=== PATIENT | male | born 1970 | race Caucasian/White ===

== ENCOUNTER 2020-09-08 13:20 | Emergency (ER) | payer OTHER, SELFPAY ==
--- NOTE | ~2020-09-08 | US_ITS ---
EXAMINATION: US ABDOMEN LIMITED CLINICAL INFORMATION: Elevated LFTs with fever.. COMPARISON: CT 11/26/2016. MRI 12/09/2016. Ultrasound from 11/12/2016. TECHNIQUE: Real-time imaging of the right upper quadrant abdominal viscera. FINDINGS: Evaluation is limited due to patient condition. PANCREAS: The pancreatic head and body are unremarkable. Limited visualization of the tail. LIVER: The liver is normal in size. The liver contour is normal. There is diffuse increased liver parenchymal echogenicity, consistent with hepatic steatosis. No hepatic lesion is seen on this study. Previously seen lesion in the right lobe of the liver is not visualized. There is no intrahepatic biliary duct dilatation seen. GALLBLADDER: The gallbladder is somewhat distended without evidence of stones, sludge, polyps, wall thickening or pericholecystic fluid. COMMON BILE DUCT: Normal in caliber measuring 0.3 cm in diameter. RIGHT KIDNEY: Normal. No hydronephrosis. No renal calculi or focal parenchymal lesions. The kidney measures 11.4 cm in maximum dimension. FREE FLUID: None. US/US abdomen limited IMPRESSION: Limited study due to patient condition. Somewhat distended gallbladder which appears otherwise unremarkable. No inflammation. Hepatic steatosis. The previously visualized lesion in the right lobe of the liver is not clearly defined on the current examination.
--- NOTE | ~2020-09-08 | XR_ITS ---
EXAMINATION: XR CHEST CLINICAL INFORMATION: Mental status change COMPARISON: 07/27/2019 TECHNIQUE: Frontal view of the chest was obtained. FINDINGS: Cardiac leads overlie the chest. The lungs are well expanded. Subcutaneous emphysema is seen overlying the left chest wall. No dense consolidation. No pleural effusion or edema. There is likely a small left apical pneumothorax. The cardiomediastinal silhouette is unremarkable. Left lateral ninth and 10th rib fractures are likely present. XR/XR chest 1V IMPRESSION: Left lateral rib fractures, likely the ninth and 10th ribs. Small left-sided pneumothorax. Subcutaneous emphysema of the left chest wall. This critical result was discussed with Óscar Gilliland MD by telephone at 09/08/2020 3:39 PM and it was ascertained that the content and urgency of the report was understood at the time of direct communication.
--- NOTE | ~2020-09-08 | CT_ITS ---
EXAMINATION: NONCONTRAST HEAD CT NONCONTRAST CERVICAL SPINE CT INDICATION INFORMATION: Mental status change. Fall. Neck pain. COMPARISON: 07/27/2019 TECHNIQUE: Separate noncontrast CT examinations of the head and cervical spine were performed. Coronal and sagittal images were created for each examination at the technologist workstation. This CT examination was performed using dose optimization techniques as appropriate, variously including the following: *Automated exposure control *Adjustment of mA and/or kV according to patient size (this includes techniques or standardized protocols for targeted exams where dose is matched to indication/reason for exam; i.e. extremities or head) *Use of iterative reconstruction technique DLP: 1461 mGy-cm FINDINGS: Head: There is no evidence of acute intracranial hemorrhage or territorial infarction. No abnormal mass effect or midline shift is seen. Duncan to white matter differentiation is well preserved. No extra-axial fluid collections are identified. No hydrocephalus. Proportional prominence of the ventricles and sulcal spaces is consistent with mild volume loss. Patchy periventricular and deep white matter hypoattenuation is consistent with mild small vessel ischemic changes. Bilateral chaparro radiata chronic lacunar infarcts. Chronic left pontine infarct. No acute osseous or soft tissue abnormality. Partial left mastoid air cell effusion. Near-complete opacification of the visualized portion of the left maxillary sinus. Cervical spine: Motion limits the evaluation. Reversal of the normal cervical lordosis. There is otherwise anatomic alignment of the vertebral bodies and posterior elements. The atlantoaxial and atlantooccipital articulations are intact. Vertebral body heights and intervertebral disc spaces are grossly maintained. No evidence of acute fracture. No prevertebral soft tissue swelling. Mild centrilobular emphysema at the lung apices. The thyroid gland is unremarkable. CT/CT cervical spine wo con IMPRESSION: 1. No acute intracranial findings. 2. No acute fracture or malalignment of the cervical spine. Motion limited evaluation.
[2020-09-08] MEDS: LORazepam 2 MG/ML VIAL IM (13:30)
--- NOTE | 2020-09-08 13:36 | ECG_ITS ---
Test Reason : SOB Blood Pressure : / mmHG Vent. Rate : 128 BPM Atrial Rate : 153 BPM P-R Int : 000 ms QRS Dur : 104 ms QT Int : 408 ms P-R-T Axes : 000 051 054 degrees QTc Int : [address] & T wave abnormality, consider anterolateral ischemia Abnormal ECG When compared with ECG of 27-JUL-2019 04:08, Supraventricular tachycardia Present Referred By: Óscar Gilliland Electronically Signed By:Jagdeep Godfrey
[2020-09-08 13:39] VITALS: BP 140/100; BP 79/29; PULSE 126; RESP 29; TEMP 38.8; O2SAT 80; O2SAT 97; BMI 32.1
[2020-09-08 13:46] LABS: Glucose, Whole Blood 112 mg/dL (60-115)
[2020-09-08 14:08] LABS: Basophils Percent Auto 0.1 % (0-2); Imm Gran Abs Auto 0.09 X10*3/uL (0.00-0.03); Imm Gran Pct Auto 0.8 % (0.0-0.4); MANUAL DIFF FLAG SCAN; Neutrophils Percent Auto 87.1 % (45-73); PLT CLUMP 1; SCAN SMEAR FLAG 1
[2020-09-08 14:10] LABS: Eosinophils Percent Auto 0.1 % (0-4); Hematocrit 38.5 % (42-52); Hemoglobin 12.8 g/dl (14.0-18.0); Lymphocytes Absolute Auto 0.6 X10*3/uL (1.2-4.9); Lymphocytes Percent Auto 5.5 % (20-40); Mean Corpuscular HGB Conc 33.2 g/dl (31.0-36.0); Mean Corpuscular Hemoglobin 34.9 pg (27.0-33.0); Mean Corpuscular Volume 104.9 fL (80-98); Mean Platelet Volume 11.3 fL (9.4-12.4); Monocytes Absolute Auto 0.7 X10*3/uL (0.1-1.2); Monocytes Percent Auto 6.4 % (2-11); Neutrophils Absolute Auto 10.1 X10*3/uL (2.0-8.3); Red Blood Count 3.67 X10*6/uL (4.60-5.80); Red Cell Distribution Width 15.7 % (11.0-16.0); White Blood Count 11.5 X10*3/uL (4.8-10.8)
[2020-09-08 14:11] LABS: Platelet Count 140 X10*3/uL (160-400)
[2020-09-08 14:31] VITALS: BP 119/74; PULSE 100; RESP 23; TEMP 37.7; O2SAT 96
[2020-09-08 14:36] LABS: Ethanol < 10 mg/dL
[2020-09-08 14:38] LABS: Alanine Aminotransferase 81 U/L (0-40); Albumin Level 3.8 g/dL (3.5-5.0); Alkaline Phosphatase 90 U/L (39-117); Anion Gap 30 (12-20); Aspartate Amino Transferase 121 U/L (5-37); B Type Natriuretic Peptide 124 pg/mL (<100); Bilirubin Direct 0.6 mg/dL (0.0-0.5); Bilirubin Total 1.1 mg/dL (0.0-1.0); Blood Urea Nitrogen 32 mg/dL (9-16); Calcium 8.4 mg/dL (8.4-10.2); Carbon Dioxide 14 mmol/L (22-29); Chloride 99 mmol/L (96-108); Creatinine Clr Calc Pharmacy 58.3; Estimated Glomerular Filt Rate 41; Glucose Random 91 mg/dL (60-115); Potassium 4.7 mmol/L (3.3-5.1); Sodium 138 mmol/L (135-145); Troponin-I High Sensitivity 21.6 ng/L (<3.5-35.0)
[2020-09-08 14:41] LABS: Glucose Urine UA NEG (NEG); Leukocyte Esterase Urine NEG (NEG); Specific Gravity - Urine >= 1.030 (1.005-1.025); Urine Blood 3+ (NEG); Urine Ketones 15 MG/DL (NEG); Urine Protein 3+ MG/DL (NEG-TRACE)
[2020-09-08 14:44] LABS: Lactic Acid 12.6 mmol/L (0.5-2.0)
[2020-09-08 14:46] LABS: Appearance Urine HAZY; Color Urine DARK YELLOW
[2020-09-08 14:48] LABS: COVID-19 Test Negative (Negative); IDNOW Serial# 9DD0AD1C; Squamous Epithelial Cell Urine 1+ /LPF; WBC Urine 0-2 /HPF (0-4)
[2020-09-08] MEDS: cefTRIAXone sodium 1 GM in 0.9 % Sodium Chloride 50 ML IV (14:48)
[2020-09-08 14:49] LABS: SLIDE REVIEW VERIFIED
--- NOTE | 2020-09-08 14:49 | PC.NURSE ---
late entry. pt was seizing at arrival with nastymgus and innability to answer questions or follow commands. Responded slowly but well to 2mg IM ativan admitstered at 1330. By 1345 pt answering basic questions though speech diff to understand. Pt repeated that he had been drinking [employer], fell down a full flight of stairs and seized after falling. Pt c/o left shoulder and head pain. denies c spine tenderness. was collared by this rn following new information. nystigmus resolved. no incontinence no incidence during CT.
[2020-09-08 14:50] LABS: Lipase 81 U/L (8-78)
--- NOTE | 2020-09-08 14:54 | PC.NURSE ---
sz pads in place.
--- NOTE | 2020-09-08 15:28 | ED.AMS ---
HPI - Altered Mental Status General Chief Complaint: Seizure Stated Complaint: UNRESPONSIVE Time Seen by Provider: 09/08/20 13:35 Source: patient and EMS Mode of arrival: EMS Limitations: altered mental status History of Present Illness HPI narrative: 50 years old male brought in by ambulance for change mental status, patient is known alcoholic, ex- which checking on the patient found in underground, patient initially was incoherent, questionable seizure movement it, on arrival to EMS patient initially was incoherent and not responding, hypoxic on room air 85%, tachycardic and hypotensive and febrile. Patient slowly but gradually start have mumbling speech, then patient started to become more coherent patient stated that he fell a flight of stair with head injury and complaining of neck pain. Patient stated that his last drink of alcohol was recent. Patient had jerking movement initially thought to be seizure related patient was given Ativan IM when he came to the emergency department and shortly this movements have disappeared. Related Data Home Medications Medication Instructions Recorded Confirmed amitriptyline 100 mg tablet 100 mg PO BEDTIME 04/21/20 06/09/20 amlodipine 10 mg tablet 10 mg PO DAILY 04/21/20 06/09/20 bupropion HCl 150 mg tablet,12 hr 150 mg PO BID 04/21/20 06/09/20 sustained-release fluoxetine 20 mg capsule 20 mg PO DAILY 04/21/20 06/09/20 ibuprofen 800 mg tablet 800 mg PO TID 04/21/20 06/09/20 pregabalin 150 mg capsule 150 mg PO BID 04/21/20 06/09/20 Previous Rx's Medication Instructions Recorded lorazepam 0.5 mg tablet See Rx Instructions PO BID PRN #60 04/15/20 tab diltiazem HCl 60 mg 60 mg PO BID #90 cap 05/12/20 capsule,extended release 12 hr acamprosate 333 mg tablet,delayed 666 mg PO TID #90 tab 06/02/20 release atorvastatin 40 mg tablet 40 mg PO DAILY #90 tab 08/18/20 duloxetine 20 mg capsule,delayed 20 mg PO BID #90 cap 08/18/20 release lisinopril 40 mg tablet 40 mg PO DAILY 30 Days #30 tab 08/18/20 Allergies Allergy/AdvReac Type Severity Reaction Status Date / Time morphine Allergy Unknown Unknown Verified 08/14/20 06:56 Review of Systems Review of Systems: Yes Unobtainable due to mental condition [facility] Past Medical History Medical History Alcohol abuse Alcoholism COPD (chronic obstructive pulmonary disease) Diabetes Hypertension Smoker Surgical History H/O hernia repair History of excision of mass History of orthopedic surgery History of tumor Family History Family History Father Colon cancer Mother Medical history unknown Sister No problems noted. Sister No problems noted. Social History Social History Alcohol intake: current Alcohol intake frequency: 3 or more drinks per day Smoking Status: Current every day smoker Tobacco Type: Cigarette Cigarettes Per Day: 20 Use of substances other than those prescribed or required for medical reasons: No Advance Directives: No Advance Directives Information Provided: No Physical Exam Vital Signs: Vital Signs: Last Vital Signs Temp 100.0 F 09/08/20 15:45 Pulse 103 H 09/08/20 15:45 Resp 33 H 09/08/20 15:45 BP 167/95 H 09/08/20 15:45 Pulse Ox 96 09/08/20 15:45 Body Mass Index 32.1 Vital signs have been reviewed as appeared to be correct. Blood pressure low. Heart rate tachycardia. Respiration rate normal. Temperature normal. Oxygen saturation normal. Appearance: Alert. Lethargic, No acute distress. Head: Normal external exam. Normocephalic. Atraumatic. No Johnson signs noted. No raccoon eyes noted Eyes: PERRLA. EOMI. Conjunctiva and sclera normal. Eyelids normal. ENT: TM's Normal. Pharynx normal. Uvula midline. Moist mucous membranes. No trismus noted. No drooling noted. No muffled voice noted. Neck: Normal inspection. Neck supple. FROM. No adenopathy. Thyroid Normal. No meningeal signs. No neck mass noted. CVS: Normal heart rate and rhythm. Heart sound normal. No murmurs noted. Pulses normal throughout. Respiratory: No respiratory distress. Painless inspiration. Breath sounds normal. No wheezes/rales/rhonchi noted. Chest nontender. No accessory muscle usage noted or decreased air movement noted. Abdomen: Soft and nontender. Bowel sounds normal in all 4 quadrants. No distention noted. No organomegaly noted. No visible injury noted. Back: No CVA tenderness. Full range of motion noted. Skin: Skin warm and dry. Normal skin color. Normal skin turgor. No rashes/lesions/lacerations noted. Extremities: No lower extremity edema. Extremities exhibit normal range of motion. Extremities nontender. Neuro: No motor deficit. No sensory deficit. Reflexes normal. Course Course Course Narrative: Assessment and plan. 50-year-old male who is known to be alcoholic everyday drinker, found by his ex- at home unresponsive, patient gradually in the emergency department regained his consciousness at time patient became belligerent and agitated with visual hallucination thought to be maybe early DTs, patient sustained 8 steps of stairs fall at home hitting his head was complaining of neck pain, chest x-ray showed multiple left ribs fracture with small pneumothorax and subcutaneous emphysema, patient met criteria for trauma patient was transferred to [facility] as a trauma case patient was accepted by Dr. Rick. Patient also initially was hypotensive with fever and tachycardia patient was given 30 cc/kg normal saline which normalized blood pressure of the patient patient with stable H&H. Patient's alcohol level is less than 10 patient a time have a visual hallucination tachycardic at time also he is agitated could be an early sign for DTs, will start the patient on phenobarb protocol. Elevated LFTs likely due to alcoholic hepatitis ultrasound is not showing cholecystitis. Patient initially received ceftriaxone/30 cc/kg normal saline but no source for infection. MDM - Altered Mental Status Lab Data Attestation: I reviewed the patient's lab results. Result diagrams: 09/08/20 13:51 09/08/20 13:51 Labs: Lab Results 09/08/20 09/08/20 09/08/20 Range/Units 13:36 13:51 13:51 WBC 11.5 H (4.8-10.8) X10*3/uL RBC 3.67 L (4.60-5.80) X10*6/uL Hgb 12.8 L (14.0-18.0) g/dl Hct 38.5 L (42-52) % MCV 104.9 H (80-98) fL MCH 34.9 H (27.0-33.0) pg MCHC 33.2 (31.0-36.0) g/dl RDW 15.7 (11.0-16.0) % Plt Count 140 L (160-400) X10*3/uL MPV 11.3 (9.4-12.4) fL Immature Gran % (Auto) 0.8 H (0.0-0.4) % Neut % (Auto) 87.1 H (45-73) % Lymph % (Auto) 5.5 L (20-40) % [place] % (Auto) 6.4 (2-11) % Eos % (Auto) 0.1 (0-4) % Baso % (Auto) 0.1 (0-2) % Lymph # (Auto) 0.6 L (1.2-4.9) X10*3/uL [place] # (Auto) 0.7 (0.1-1.2) X10*3/uL Eos # (Auto) 0.0 (0.0-0.4) X10*3/uL Baso # (Auto) 0.0 (0.0-0.2) X10*3/uL Abs Immat Gran (auto) 0.09 H (0.00-0.03) X10*3/uL Absolute Neuts (auto) 10.1 H (2.0-8.3) X10*3/uL Absolute Nucleated RBC 0.000 (0.0-0.012) X10*3/uL Nucleated RBC % (auto) 0.0 (0.0-0.2) /100WBC Smear Tech's Comments VERIFIED Sodium 138 (135-145) mmol/L Potassium 4.7 (3.3-5.1) mmol/L Chloride 99 (96-108) mmol/L Carbon Dioxide 14 L (22-29) mmol/L Anion Gap 30 H (12-20) BUN 32 H (9-16) mg/dL Creatinine 1.77 H (0.5-1.4) mg/dL Estim Creat Clear Calc 58.3 Estimated GFR 41 POC Glucose 112 (60-115) mg/dL Random Glucose 91 (60-115) mg/dL Lactic Acid (0.5-2.0) mmol/L Calcium 8.4 (8.4-10.2) mg/dL Total Bilirubin 1.1 H (0.0-1.0) mg/dL Direct Bilirubin 0.6 H (0.0-0.5) mg/dL AST 121 H (5-37) U/L ALT 81 H (0-40) U/L Alkaline Phosphatase 90 (39-117) U/L Troponin I High Sens (<3.5-35.0) ng/L B-Natriuretic Peptide (<100) pg/mL Total Protein 7.0 (6.5-8.0) g/dL Albumin 3.8 (3.5-5.0) g/dL Lipase 81 H (8-78) U/L Urine Color Urine Appearance Urine pH (5.0-8.0) Ur Specific Jackson (1.005-1.025) Urine Protein (NEG-TRACE) MG/DL Urine Glucose (UA) (NEG) MG/DL Urine Ketones (NEG) MG/DL Urine Blood (NEG) Urine Nitrite Ur Leukocyte Esterase (NEG) Urine RBC (0) /HPF Urine WBC (0-4) /HPF Ur Squamous Epith Cells /LPF Urine Bacteria /LPF Ethyl Alcohol mg/dL COVID-19 (FELIPE) (Negative) COVID-19 Clin Com 09/08/20 09/08/20 09/08/20 Range/Units 13:51 13:51 13:51 WBC (4.8-10.8) X10*3/uL RBC (4.60-5.80) X10*6/uL Hgb (14.0-18.0) g/dl Hct (42-52) % MCV (80-98) fL MCH (27.0-33.0) pg MCHC (31.0-36.0) g/dl RDW (11.0-16.0) % Plt Count (160-400) X10*3/uL MPV (9.4-12.4) fL Immature Gran % (Auto) (0.0-0.4) % Neut % (Auto) (45-73) % Lymph % (Auto) (20-40) % [place] % (Auto) (2-11) % Eos % (Auto) (0-4) % Baso % (Auto) (0-2) % Lymph # (Auto) (1.2-4.9) X10*3/uL [place] # (Auto) (0.1-1.2) X10*3/uL Eos # (Auto) (0.0-0.4) X10*3/uL Baso # (Auto) (0.0-0.2) X10*3/uL Abs Immat Gran (auto) (0.00-0.03) X10*3/uL Absolute Neuts (auto) (2.0-8.3) X10*3/uL Absolute Nucleated RBC (0.0-0.012) X10*3/uL Nucleated RBC % (auto) (0.0-0.2) /100WBC Smear Tech's Comments Sodium (135-145) mmol/L Potassium (3.3-5.1) mmol/L Chloride (96-108) mmol/L Carbon Dioxide (22-29) mmol/L Anion Gap (12-20) BUN (9-16) mg/dL Creatinine (0.5-1.4) mg/dL Estim Creat Clear Calc Estimated GFR POC Glucose (60-115) mg/dL Random Glucose (60-115) mg/dL Lactic Acid 12.6 H* (0.5-2.0) mmol/L Calcium (8.4-10.2) mg/dL Total Bilirubin (0.0-1.0) mg/dL Direct Bilirubin (0.0-0.5) mg/dL AST (5-37) U/L ALT (0-40) U/L Alkaline Phosphatase (39-117) U/L Troponin I High Sens 21.6 (<3.5-35.0) ng/L B-Natriuretic Peptide 124 H (<100) pg/mL Total Protein (6.5-8.0) g/dL Albumin (3.5-5.0) g/dL Lipase (8-78) U/L Urine Color Urine Appearance Urine pH (5.0-8.0) Ur Specific Jackson (1.005-1.025) Urine Protein (NEG-TRACE) MG/DL Urine Glucose (UA) (NEG) MG/DL Urine Ketones (NEG) MG/DL Urine Blood (NEG) Urine Nitrite Ur Leukocyte Esterase (NEG) Urine RBC (0) /HPF Urine WBC (0-4) /HPF Ur Squamous Epith Cells /LPF Urine Bacteria /LPF Ethyl Alcohol < 10 mg/dL COVID-19 (FELIPE) (Negative) COVID-19 Clin Com 09/08/20 09/08/20 Range/Units 13:53 13:53 WBC (4.8-10.8) X10*3/uL RBC (4.60-5.80) X10*6/uL Hgb (14.0-18.0) g/dl Hct (42-52) % MCV (80-98) fL MCH (27.0-33.0) pg MCHC (31.0-36.0) g/dl RDW (11.0-16.0) % Plt Count (160-400) X10*3/uL MPV (9.4-12.4) fL Immature Gran % (Auto) (0.0-0.4) % Neut % (Auto) (45-73) % Lymph % (Auto) (20-40) % [place] % (Auto) (2-11) % Eos % (Auto) (0-4) % Baso % (Auto) (0-2) % Lymph # (Auto) (1.2-4.9) X10*3/uL [place] # (Auto) (0.1-1.2) X10*3/uL Eos # (Auto) (0.0-0.4) X10*3/uL Baso # (Auto) (0.0-0.2) X10*3/uL Abs Immat Gran (auto) (0.00-0.03) X10*3/uL Absolute Neuts (auto) (2.0-8.3) X10*3/uL Absolute Nucleated RBC (0.0-0.012) X10*3/uL Nucleated RBC % (auto) (0.0-0.2) /100WBC Smear Tech's Comments Sodium (135-145) mmol/L Potassium (3.3-5.1) mmol/L Chloride (96-108) mmol/L Carbon Dioxide (22-29) mmol/L Anion Gap (12-20) BUN (9-16) mg/dL Creatinine (0.5-1.4) mg/dL Estim Creat Clear Calc Estimated GFR POC Glucose (60-115) mg/dL Random Glucose (60-115) mg/dL Lactic Acid (0.5-2.0) mmol/L Calcium (8.4-10.2) mg/dL Total Bilirubin (0.0-1.0) mg/dL Direct Bilirubin (0.0-0.5) mg/dL AST (5-37) U/L ALT (0-40) U/L Alkaline Phosphatase (39-117) U/L Troponin I High Sens (<3.5-35.0) ng/L B-Natriuretic Peptide (<100) pg/mL Total Protein (6.5-8.0) g/dL Albumin (3.5-5.0) g/dL Lipase (8-78) U/L Urine Color DARK YELLOW Urine Appearance HAZY Urine pH 6.0 (5.0-8.0) Ur Specific Jackson >= 1.030 H (1.005-1.025) Urine Protein 3+ H (NEG-TRACE) MG/DL Urine Glucose (UA) NEG (NEG) MG/DL Urine Ketones 15 (NEG) MG/DL Urine Blood 3+ H (NEG) Urine Nitrite TNP Ur Leukocyte Esterase NEG (NEG) Urine RBC 1-4 (0) /HPF Urine WBC 0-2 (0-4) /HPF Ur Squamous Epith Cells 1+ /LPF Urine Bacteria NONE /LPF Ethyl Alcohol mg/dL COVID-19 (FELIPE) Negative (Negative) COVID-19 Clin Com See Note Imaging Data CT scan - head: Radiologist's impression: No acute intracranial pathology. Cervical spine CT: Radiologist's impression: No cervical spine fracture. Chest x-ray: Radiologist's impression: Left lateral rib fractures, likely the ninth and 10th ribs. Small left-sided pneumothorax. Subcutaneous emphysema of the left chest wall. Abdominal ultrasound: Radiologist's impression: Limited study due to patient condition. Somewhat distended gallbladder which appears otherwise unremarkable. No inflammation. Hepatic steatosis. The previously visualized lesion in the right lobe of the liver is not clearly defined on the current examination. Critical Care Time Critical Care Time Total Critical Care Time: 60 Attestation: I spent 60 minutes providing critical care service to the patient, this including time spent at the bedside to evaluate the patient, reassess the patient, monitoring vital signs, review labs, and radiographic studies, counseling the patient/family, discussing the case with consultants, disposition and transferring the patient. Discharge Plan Discharge Clinical Impression: Fall, Fracture, ribs, Pneumothorax, DTs (delirium tremens) Patient Disposition: [facility] Hospital Transfer Details: Trauma transfer. Prescriptions: No Action lorazepam 0.5 mg tablet See Rx Instructions PO BID PRN (Reason: anxiety) Qty: 60 RF: 5 diltiazem HCl 60 mg capsule,extended release 12 hr 60 mg PO BID Qty: 90 RF: 8 acamprosate 333 mg tablet,delayed release (DR/EC) 666 mg PO TID Qty: 90 RF: 3 atorvastatin 40 mg tablet 40 mg PO DAILY Qty: 90 RF: 8 lisinopril 40 mg tablet 40 mg PO DAILY 30 Days Qty: 30 RF: 8 duloxetine 20 mg capsule,delayed release(DR/EC) 20 mg PO BID Qty: 90 RF: 8 fluoxetine 20 mg capsule 20 mg PO DAILY RF: 0 amitriptyline 100 mg tablet 100 mg PO BEDTIME RF: 0 ibuprofen 800 mg tablet 800 mg PO TID RF: 0 pregabalin 150 mg capsule 150 mg PO BID RF: 0 bupropion HCl 150 mg tablet sustained-release 12 hr 150 mg PO BID RF: 0 amlodipine 10 mg tablet 10 mg PO DAILY RF: 0
[2020-09-08 15:45] VITALS: BP 167/95; PULSE 103; RESP 33; TEMP 37.8; O2SAT 96
--- NOTE | 2020-09-08 15:55 | PC.NURSE ---
1530 pt found towards end of bed, discheveled and confused. pt able to respond to nurses and attempt to follow commands but incomprehensable at times and disoriented. nystagmus continues. md aware, pt wrighted and iv's wrapped etc. collar had been removed p/t this rn arrival
[2020-09-08 16:00] LABS: Reflex Lactate? Lactic Acid Added
--- NOTE | 2020-09-08 16:12 | PC.NURSE ---
@[address] JULIAN FOR CALL OUT TO [facility] LINE FOR TRAUMA TRANSFER [facility] ANSWERS TAKES PT INFO AND ASKS TO SPEAK WITH DR IESHA JULIAN TAKES OVER CALL RIGHT AWAY @1604 RETURN CALL FROM [facility] FROM [facility] [place] LINE ASKING TO SPEAK WITH DR IESHA JULIAN TAKES OVER CALL RIGHT AWAY @1619 DR JULIAN ASKS FOR ALS TRAUMA TRANSPORTATION FOR THIS PT [facility] FROM [facility] NOTIFIED
[2020-09-08] MEDS: LORazepam 2 MG/ML VIAL IVPUSH (16:26)
--- NOTE | 2020-09-08 16:26 | PC.NURSE ---
MEDICATED WITH IV ATIVAN FOR INCREASED AMS AND SLIDDING ALL OVER BED. IS TACHIPNIC AND STILL CONFUSED HE WAS LAST TIME. ST ON MONITR. ATTEMPTING TO ASNWER QUESTIONS BUT NONSENSICLE. MD AWARE. PLANS FOR TRANSFER TO [facility].
[2020-09-08] MEDS: PHENobarbitaL sodium 130 MG/ML VIAL 234 MG IM (16:37)
[2020-09-08] MEDS: Thiamine HCL 500 MG in 0.9 % Sodium Chloride 100 ML 210 MG IV (16:40)
--- NOTE | 2020-09-08 16:44 | PC.NURSE ---
rn to rn with [facility] at bedside for transfer.
== END 2020-09-08 17:28 | disposition short-term general hospital (02) ==
PROVIDERS: Emergency Provider Emergency Medicine; PCP Internal Medicine
DX: S27.0XXA Traumatic pneumothorax, initial encounter (principal); S22.42XA Multiple fractures of ribs, left side, initial encounter for closed fracture; W10.8XXA Fall (on) (from) other stairs and steps, initial encounter; F10.231 Alcohol dependence with withdrawal delirium; R44.1 Visual hallucinations; Y90.0 Blood alcohol level of less than 20 mg/100 ml; R06.82 Tachypnea, not elsewhere classified; Z20.822 Contact with and (suspected) exposure to COVID-19; E11.9 Type 2 diabetes mellitus without complications; I10 Essential (primary) hypertension; J44.9 Chronic obstructive pulmonary disease, unspecified; F17.210 Nicotine dependence, cigarettes, uncomplicated; Y93.89 Activity, other specified; Y92.019 Unspecified place in single-family (private) house as the place of occurrence of the external cause; Y99.9 Unspecified external cause status
CPT/HCPCS: 36415; 70450; 71045; 72125; 76705; 80048; 80076; 80320; 81001; 82947; 83605; 83690; 83880; 84484; 85025; 87040; 87076; 87147; 87185; 87205; 87635; 93005; 96361; 96365; 96367; 96372; 96374; 96375; 96376; 99285; 99291; J0696; J2060; J2560; J3411